=== PATIENT | female | born 1995 | race Caucasian/White ===

== ENCOUNTER → 2017-11-30 16:10 | Observation (INO) ==
[2017-11-30 15:23] LABS: Bilirubin,Urine Negative (Negative); Blood,Urine Negative (Negative); Clarity,Urine Turbid (Clear); Color,Urine Yellow (Yellow); Glucose,Urine (UA) Normal (Normal); Ketones,Urine Negative (Negative); Leukocyte Esterase,Urine Moderate (Negative); Nitrite,Urine Negative (Negative); PH,Urine 7.5 pH Units (5.0-8.0); Protein,Urine Negative (Neg-Trace); Urobilinogen,Urine Normal (Normal)
[2017-11-30 15:25] LABS: Bacteria,Urine None Seen per hpf (None-Few); Hyaline Casts,Urine None Seen per lpf (None-Few); RBC,Urine 0-3 per hpf (0-3); Squamous Epithelial Cell,Urine Many per lpf (None-Few)
[2017-11-30 15:31] LABS: Amphetamine Screen,Urine Negative ng/mL (Cutoff=1000); Barbiturate Screen,Urine Negative ng/mL (Cutoff=200); Benzodiazepines Screen,Urine Negative ng/mL (Cutoff=200); Cannabinoid Screen,Urine Negative ng/mL (Cutoff = 50); Cocaine Screen,Urine Negative ng/mL (Cutoff= 300); Opiate Screen,Urine Negative ng/mL (Cutoff=300); Phencyclidine Screen,Urine Negative ng/mL (Cutoff=25)
--- NOTE | 2017-11-30 15:33 | OB/GYN Progress Note ---
Date of Encounter: 11/30/17 Time of Encounter: 15:30 - Assessment and Plan (1) with 20 completed weeks gestation Current Visit: Yes Status: Acute Patient reports that she is 20 weeks and 4 days intrauterine gestation and receives care in [place] (2) Vaginal bleeding affecting early Current Visit: Yes Status: Acute Patient refused straight catheter Speculum examination demonstrates no blood, scant amount of white discharge noted. SVE was closed, thick and high FHT reassuring 160 per doppler no contractions noted on toco patient to follow-up with OB provider this week. (3) History of recurrent UTIs Current Visit: Yes Status: Acute (4) History of delivery Current Visit: Yes Status: Acute (5) History of 1 spontaneous Current Visit: Yes Status: Acute Subjective - Subjective Principal diagnosis: Vaginal bleeding Interval history: Ms. Posey is a 22F 1112 at 20 weeks and 4 days who presents to labor and delivery for vaginal bleeding. Past medical history of gonorrhea infection, preeclampsia in previous , previous delivery, history of +GBS during previous pregnancies. [place]. She reports that she noticed vaginal spotting at noon today. She also states that her hands are dyed bright red due to her dying her hair today. She denies movements, contractions, leakage of fluid. She admits to headaches, denies vision changes, chest pain, shortness of breath, epigastric pain, dysuria , hematuria. Patient reports that her had been complicated by multiple UTIs treated with antibiotics (last episode 3 weeks ago). Antepartum ROS: vaginal bleeding (Vaginal spotting) Objective - Exam FHR comments: 160 bpm per doppler Auscultation: bilateral: normal Abdomen: Present: normal appearance, soft, gravid Uterus: Present: normal, firm Cervical dilation: closed Cervix effacement: thick Comments: I examined this patient and my medical decision-making was reviewed with the Resident Physician. I agree with the documented findings, disposition and treatment plan as described except to the extent set forth below. SANDEEP Lopez - Labs Labs: Abnormal lab results Urine Clarity Turbid (Clear) A 11/30/17 15:15 Ur Leukocyte Esterase Moderate (Negative) H 11/30/17 15:15 Urine Microscopic WBC 5-15 per hpf (0-3) H 11/30/17 15:15 Ur Squamous Epith Cells Many per lpf (None-Few) H 11/30/17 15:15
== END | disposition home or self-care (01) ==
LOC: 1NENULAB
PROVIDERS: ADMIT Obstetrics & Gynecology; ATTEND Obstetrics & Gynecology